=== PATIENT | female | born 1955 | race African-American/Black ===

== ENCOUNTER 2017-06-14 14:28 | Emergency (ER) | payer OTHER, MEDICAID ==
[~2017-06-14] VITALS: Ht 167.6 cm; Wt 76.0 kg
[~2017-06-14 14:28] MED LIST: BLOOD PRESSURE; METF500T4
[2017-06-14] MEDS ORDERED: TRAMADOL 50MG TABLET PO ONE (18:15)
[2017-06-14 21:00] VITALS: BP 190/85
== END 2017-06-14 21:20 | disposition home or self-care (01) ==
LOC: ER 14:28
DX: S70.02XA Contusion of left hip, initial encounter (principal); J44.9 Chronic obstructive pulmonary disease, unspecified; I10 Essential (primary) hypertension; E11.9 Type 2 diabetes mellitus without complications; F17.200 Nicotine dependence, unspecified, uncomplicated; Z98.890 Other specified postprocedural states
CPT/HCPCS: 72192; 99284